=== PATIENT | female | born 1950 | race Caucasian/White ===

== ENCOUNTER 2016-10-01 10:00 | Outpatient (CLI) | payer OTHER ==
[2016-06-23 18:09] VITALS: BMI 31.8
--- NOTE | 2016-10-01 15:01 | CT ---
Examination: Helical CT examination of the abdomen pelvis with intravenous contrast. Comparison: 02/04/2016. Reason for study: Left lower quadrant pain. FINDINGS: Bibasilar atelectasis in the anterior lung bases. The heart is not enlarged. There is a moderate to large hiatal hernia not significantly changed from the prior exam. The liver, spleen, adrenal glands, gallbladder, pancreas, and kidneys are unremarkable. There is a t iny periumbilical fat-containing hernia. Surgical clips are noted in the right lower quadrant. The uterus is been removed. No pelvic free fluid or intra-abdominal free air. Mild degenerative disea se of the thoracic and lumbosacral spine. Parenchymal changes are noted within both breasts. There is a nodular density in the right breast best seen on axial image #6. Impression: 1. Moderate to large hiatal hernia not significantly changed when compared to the prior exam. 2. No acute findings in the abdomen or pelvis. 3. Nodular density in the right breast. If clinical concern exists, consultation with mammography should be performed.
== END 2016-10-01 10:01 | disposition home or self-care (01) ==
LOC: RAD 10:00
PROVIDERS: ATTEND Physician Assistant
DX: R10.32 Left lower quadrant pain (principal); K92.1 Melena

== ENCOUNTER 2016-10-13 09:35 | Outpatient (CLI) ==
[2016-06-23 18:09] VITALS: BMI 31.8
--- NOTE | 2016-10-13 10:28 | MAMMO ---
EXAM: Bilateral digital diagnostic mammogram History: Right breast nodules seen on recent CT. Comparison: Bilateral mammogram 12/19/2014, CT abdomen pelvis 10/01/2016 Findings: MLO and CC views of bilateral breasts demonstrate scattered fibroglandular breast parench yma. Stable benign intramammary lymph node within the upper-outer quadrant of the right breast. St able benign bilateral breast calcifications. There are no dominant masses and no suspicious microca lcifications. Impression: Benign stable mammogram. Recommend return to routine screening mammography schedule. BIRADS 2
== END 2016-10-13 09:36 | disposition home or self-care (01) ==
LOC: RAD 09:35
PROVIDERS: ATTEND Nurse Practitioner Family
DX: R93.8 Abnormal findings on diagnostic imaging of other specified body structures (principal); N63 Unspecified lump in breast

== ENCOUNTER 2016-10-15 23:14 | Emergency (ER) ==
[2016-10-15 23:18] VITALS: BP 174/118; TEMP 96.5; BMI 30.9
--- NOTE | 2016-10-15 23:55 | ED.PDOC ---
General ED Provider: Dr. CLARISA JOE Chief Complaint: Hypertension Stated Complaint: patient states that her blood pressure has been elevated causing her to have a headache. patient states she has been taking her blood pressure medication as perscribed. Time Seen by Physician: 23:54 Mode of Arrival: Walk-In Information Source: Patient Primary Care Provider: LYNN FARIAS Nursing and Triage Documentation Reviewed and Agree: Yes Review of Systems - Review Of Systems Constitutional: Reports: No symptoms Eyes: Reports: No symptoms Ears, Nose, Mouth, Throat: Reports: No symptoms Respiratory: Reports: No symptoms Cardiac: Reports: No symptoms GI: Reports: No symptoms : Reports: No symptoms Musculoskeletal: Reports: No symptoms Skin: Reports: No symptoms Neurological: Reports: Anxiety, Headache Endocrine: Reports: No symptoms Hematologic/Lymphatic: Reports: No symptoms All Other Systems: Reviewed and Negative Past Medical History - Past Medical History Previously Healthy: No Endocrine: Reports: None, Hypothyroid, Dyslipidemia Cardiovascular: Reports: Hypertension Respiratory: Reports: None Hematological: Reports: None Gastrointestinal: Reports: None, GERD Genitourinary: Reports: None Neuro/Psych: Reports: Anxiety, Depression Musculoskeletal: Reports: Arthritis, Back Pain Cancer: Reports: None Last Menstrual Period: n/a - Surgical History General Surgical History: Reports: Hysterectomy, Tonsillectomy - Family History Family History: Reports: None - Social History Smoking Status: Former smoker Hx Substance Use: No Alcohol Screening: Occasionally Physical Exam - Physical Exam Appearance: Ill-appearing Ill-appearing: Mild Pain Distress: Mild Eyes: ILAN, EOMI, Conjunctiva clear Neck: Supple Respiratory: Airway patent, Breath sounds clear, Breath sounds equal, Respirations nonlabored Cardiovascular: RRR GI/: Soft, Nontender, No masses, Bowel sounds normal, No Organomegaly Musculoskeletal: Normal strength Skin: Warm, Dry, Normal color Neurological: Sensation intact, Motor intact, Reflexes intact, Cranial nerves intact, Alert, Oriented Psychiatric: Anxious Interpretation - Radiology Interpretation Radiology Interpretation By: Radiologist Radiology Results: Negative Exam Interpreted: CT Scan (head) Re-Evaluation - Re-Evaluation Time of Re-Evaluation: 01:00 Status: Improved Vital Signs Stable: Yes (bp 131/61, p61) Critical Care Note - Critical Care Note Total Time (mins): 0 Course - Course Orders, Labs, Meds: Lab Review 10/16/16 00:55 Influenza A (Rapid) Negative Influenza B (Rapid) Negative Orders Category Date Time Status MOLECULAR GROUP A STREP Stat LAB 10/16/16 00:55 Results RAPID FLU A/B Stat LAB 10/16/16 00:55 Completed STREP SCREEN Stat LAB 10/16/16 00:55 Results Acetaminophen [Tylenol] MEDS 10/16/16 00:43 Discontinued 1,000 mg PO ONCE STA CT HEAD W/O CONTRAST Stat RADS 10/15/16 23:51 Completed Medications Discontinued Medications Generic Name Dose Route Start Last Admin Trade Name Brenden PRN Reason Stop Dose Admin Acetaminophen 1,000 mg 10/16/16 00:43 10/16/16 00:51 Tylenol PO 10/16/16 00:44 1,000 mg ONCE STA Administration Vital Signs: Temp Pulse Resp BP Pulse Ox 10/15/16 23:15 96.5 F L 59 L 16 174/118 H 96 Departure - Departure Time of Disposition: 01:34 Disposition: HOME SELF-CARE Discharge Problem: Hypertension Qualifiers: Hypertension type: essential hypertension Qualifier Code: (I10) Essential ( primary) hypertension Headache Qualifiers: Headache type: tension-type Headache chronicity pattern: acute headache Intractability: not intractable Qualifier Code: (G44.209) Tension-type headache , unspecified, not intractable Instructions: Migraine Headache (ED) Condition: Good Pt referred to PMD for follow-up: Yes Additional Instructions: Follow up with PCP in 3 days Take Tylenol as needed for headache. Allergies/Adverse Reactions: Allergies doxycycline calcium [From Vibramycin] Adverse Reaction (Verified 10/15/16 23:19) doxycycline hyclate [From Vibramycin] Adverse Reaction (Verified 10/15/16 23:19) doxycycline monohydrate [From Vibramycin] Adverse Reaction (Verified 10/15/16 23 :19) naproxen [From Aleve] Adverse Reaction (Verified 10/15/16 23:19) Home Medications: Ambulatory Orders Metoprolol Tartrate [Lopressor] 50 mg PO DAILY 10/17/15 Temazepam 30 mg PO BEDTIME 10/17/15 Alprazolam [Xanax] 0.25 mg PO TID 02/04/16 Hydrocodone/Acetaminophen [Hydrocodon-Acetaminophn 10-325] 10 each PO BID PRN Levothyroxine Sodium [Levo-T] 50 mg PO DAILY 06/11/16 Ranitidine HCl [Zantac] 150 mg PO BID 06/11/16 Travoprost Opth [Travatan Z] 1 drop EACHEYE BID 06/11/16 Atorvastatin Calcium 10 mg PO BEDTIME 06/23/16 Cholecalciferol (Vitamin D3) [Vitamin D3] 5,000 unit PO DAILY 06/23/16 Esomeprazole Magnesium [Nexium] 40 mg PO PRN PRN 10/15/16
--- NOTE | 2016-10-16 00:29 | CT ---
EXAM: CT brain without contrast HISTORY: Headache and hypertension TECHNIQUE: CT of the brain without intravenous contrast FINDINGS: There is no acute hemorrhage midline shift or mass effect. No hydrocephalus or abnormal extra-axial fluid collection. Generalized involutional atrophy, moderate. Chronic microvascular ch anges of the white matter tracts, mild. Prior left basil ganglia lacunar infarct. No acute large v essel territorial infarct is seen. The bony cranium appears normal. The visualized paranasal sinuse s are clear. Soft tissues without significant abnormality. IMPRESSION: 1. Chronic changes as described. No acute intracranial abnormality is seen. No interval change [facility] 06/23/2016.
[2016-10-16] MEDS ORDERED: TYLENOL PO STA (00:43)
[2016-10-16 01:17] LABS: FLU INTERNAL QC INTERNAL QC VALID
[2016-10-16 01:18] LABS: RAPID FLU A NEGATIVE (NEGATIVE); RAPID FLU B NEGATIVE (NEGATIVE)
== END 2016-10-16 01:46 | disposition home or self-care (01) ==
LOC: ED 23:14
DX: I10 Essential (primary) hypertension (principal); G44.209 Tension-type headache, unspecified, not intractable; Z79.899 Other long term (current) drug therapy
CPT/HCPCS: 87651; 87804; 87880; 99283

== ENCOUNTER 2017-06-14 13:03 | Outpatient (CLI) | payer OTHER ==
[2017-06-14 14:05] LABS: BASOPHILS % (AUTO) 0.2 % (0.0-3.0); HEMATOCRIT 37.6 % (37.0-47.0); IMMATURE GRANULOCYTE % (AUTO) 0.5 % (0.0-5.0); LYMPHOCYTES # (AUTO) 1.4 K/uL (0.60-3.4); LYMPHOCYTES % (AUTO) 8.9 (10.0-50.0); MEAN CORPUSCULAR HGB CONC 34.6 (31.8-35.4); MEAN CORPUSCULAR VOLUME 86.8 fl (81.0-99.0); MONOCYTES # (AUTO) 1.4 K/uL (0.4-2.0); MONOCYTES % (AUTO) 9.1 (0-10); NEUTROPHILS # (AUTO) 12.5 K/ul (2.0-6.9); NEUTROPHILS % (AUTO) 81.3; PLATELET COUNT 411 10^3/uL (140-440); RED BLOOD COUNT 4.33 10^6/ul (4.20-5.40); WHITE BLOOD COUNT 15.42 K/ul (4.6-10.2)
--- NOTE | 2017-06-14 14:08 | CT ---
EXAM: CT abdomen pelvis without contrast HISTORY: Generalized abdominal pain COMPARISON: 10/01/2016 TECHNIQUE: CT abdomen pelvis performed without intravenous contrast. Coronal and sagittal reformatt ed images obtained. FINDINGS: Subsegmental atelectasis and/or scarring lung bases. No free air. No acute abnormalities of the bones. Degenerative change in the spine. Heart normal in size. Evaluation organ parenchyma limited without contrast. Liver appears normal. Gallbladder unremarkable. Pancreas unremarkable. Spleen unremarkable. Adrenals unremarkable. Kidneys unremarkable. Aorta normal in caliber. Mild atherosclerosis. Bladder only mildly distended and poorly evaluated, grossly unremarkable. Patient s tatus post hysterectomy. Small fat-containing umbilical hernia. No lymphadenopathy or ascites. Pos tsurgical changes of hiatal hernia repair. No dilated loops small bowel. Appendix not visualized. Colonic diverticulosis. No lymphadenopathy or ascites. No inflammatory stranding identified in the abdomen or pelvis. IMPRESSION: 1. No acute inflammatory process identified in the abdomen or pelvis. 2. Colonic diverticulosis
[2017-06-14 15:04] LABS: ALBUMIN 3.6 g/dL (3.4-5.0); ALBUMIN/GLOBULIN RATIO 0.9; ANION GAP 14.9; BILIRUBIN,TOTAL 0.5 mg/dL (0.00-1.20); BUN/CREATININE RATIO 22.35; CREATININE 0.85 mg/dL (0.60-1.30); POTASSIUM 3.9 mmol/L (3.5-5.10); TOTAL PROTEIN 7.6 g/dL (5.8-8.1)
== END 2017-06-14 13:04 | disposition home or self-care (01) ==
LOC: RAD 13:03
PROVIDERS: ATTEND Emergency Medicine
DX: R10.84 Generalized abdominal pain (principal); E03.8 Other specified hypothyroidism
CPT/HCPCS: 36415; 80053; 85025

== ENCOUNTER 2017-09-15 16:22 | Outpatient (CLI) | END 2017-09-15 16:23 | disposition home or self-care (01) | LOC: LAB 16:22 | PROVIDERS: ATTEND Emergency Medicine | DX: E78.5 Hyperlipidemia, unspecified (principal); E03.8 Other specified hypothyroidism | CPT/HCPCS: 36415; 80053; 80061; 84443; 85025 ==

== ENCOUNTER 2017-10-04 12:15 | Outpatient (CLI) | payer OTHER ==
--- NOTE | 2017-10-04 13:38 | CT ---
EXAM: CT head without contrast. HISTORY: Initial presentation for head trauma. COMPARISON: 10/15/2016. TECHNIQUE: Multiple axial images of the brain were obtained from the skull base through the vertex w ithout intravenous contrast. Multiplanar reformats were provided. FINDINGS: There is no intracranial hemorrhage or extraaxial collection. The patino-white differentiat ion is maintained without evidence for acute large vascular territory infarction. There are areas of periventricular and subcortical white matter low attenuation. The cortical sulci and cerebral ventr icles are symmetrically enlarged. The basal cisterns are well visualized. There is no hydrocephalus , mass effect, or midline shift. The paranasal sinuses and mastoid air cells are clear. The calvari um is intact. Since the prior study, there has been no significant interval change. IMPRESSION: 1. No acute intracranial abnormality. 2. Chronic small vessel ischemic changes and atrophy.
--- NOTE | 2017-10-04 13:42 | CT ---
EXAM: CT of the cervical spine without contrast History: Head and neck trauma. Technique: Multiplanar CT images through the cervical spine were obtained without the administration of IV contrast Findings: The visualized upper lungs are free of consolidation. The visualized airway remains paten t. Reversal of the normal cervical lordosis. No acute fracture or subluxation of the cervical spine. N o prevertebral soft tissue swelling. Predental space is not widened. Moderate to severe disc space narrowing at C5-6 and C6-7 with osteophyte formation. There is anterior subluxation of the bilateral temporal mandibular joints. C2-3: No significant bony central canal stenosis or bony neural foraminal narrowing. C3-4: No significant bony central canal stenosis. Moderate to severe right-sided bony neural forami nal narrowing secondary to uncovertebral and facet hypertrophy. No left-sided bony neural foraminal narrowing. C4-5: No significant bony central canal stenosis. Moderate to severe right-sided bony neural forami nal narrowing secondary to uncovertebral and facet hypertrophy. No significant left-sided bony neura l foraminal narrowing. C5-6: Posterior disc osteophyte complex with mild central canal stenosis. Severe right and moderate to severe left bony neural foraminal narrowing secondary to uncovertebral and facet hypertrophy. C6-7: Small posterior disc osteophyte complex with mild central canal stenosis. Severe right and mo derate to severe left bony neural foraminal narrowing secondary to uncovertebral and facet hypertroph y. Impression: 1. No acute osseous abnormality of the lumbar spine. 2. Moderate to severe degenerative disc disease at C5-6 and C6-7. 3. Degenerative changes with one also as detailed above.
== END 2017-10-04 12:16 | disposition home or self-care (01) ==
LOC: RAD 12:15
PROVIDERS: ATTEND Emergency Medicine
DX: S09.90XA Unspecified injury of head, initial encounter (principal); S19.9XXA Unspecified injury of neck, initial encounter

== ENCOUNTER 2017-11-08 11:27 | Outpatient (CLI) ==
--- NOTE | 2017-11-09 09:43 | MAMMO ---
EXAM: Bilateral digital screening mammogram (2-D and 3-D) History: Screening Comparison: Bilateral mammogram 10/13/2016 Findings: MLO and CC views of bilateral breasts demonstrate scattered fibroglandular breast parenchy ma. CAD was reviewed by the radiologist. Tomosynthesis was performed. Stable benign intramammary l ymph node within the upper-outer quadrant of the right breast. Stable benign bilateral breast calcif ications. There are no dominant masses, no suspicious microcalcifications and no architectural disto rtions Impression: Benign stable mammogram. Recommend followup routine screening mammography in 1 year. BIRADS 2
== END 2017-11-08 11:28 | disposition home or self-care (01) ==
LOC: RAD 11:27
PROVIDERS: ATTEND Emergency Medicine
DX: Z12.31 Encounter for screening mammogram for malignant neoplasm of breast (principal)
CPT/HCPCS: 77067

== ENCOUNTER 2018-01-11 10:00 | Outpatient (RCR) | END 2018-01-12 23:59 | LOC: NEWBEG 10:00 | PROVIDERS: ATTEND Psychiatry & Neurology Psychiatry | DX: F33.3 Major depressive disorder, recurrent, severe with psychotic symptoms (principal); F41.9 Anxiety disorder, unspecified; E78.5 Hyperlipidemia, unspecified; E03.8 Other specified hypothyroidism | CPT/HCPCS: 36415; 80053; 80061; 85025; 90792; 90853 ==

== ENCOUNTER 2018-01-11 14:52 | Outpatient (CLI) | END 2018-01-11 14:53 | disposition home or self-care (01) | LOC: RHC-LAB 14:52 | PROVIDERS: ATTEND Emergency Medicine | DX: E78.5 Hyperlipidemia, unspecified (principal); E03.8 Other specified hypothyroidism | CPT/HCPCS: 36415; 80053; 80061; 85025 ==

== ENCOUNTER 2018-01-30 10:00 | Outpatient (RCR) ==
[2017-11-08 11:32] VITALS: BMI 30.9
== END 2018-02-11 23:59 ==
LOC: NEWBEG 10:00
PROVIDERS: ATTEND Psychiatry & Neurology Psychiatry
DX: F33.3 Major depressive disorder, recurrent, severe with psychotic symptoms (principal); F41.9 Anxiety disorder, unspecified
CPT/HCPCS: 90853; 99213

== ENCOUNTER 2018-03-13 10:00 | Outpatient (RCR) ==
[2017-11-08 11:32] VITALS: BMI 30.9
== END 2018-03-14 23:59 ==
LOC: NEWBEG 10:00
PROVIDERS: ATTEND Psychiatry & Neurology Psychiatry
DX: F33.3 Major depressive disorder, recurrent, severe with psychotic symptoms (principal); F41.9 Anxiety disorder, unspecified
CPT/HCPCS: 90853; 99213

== ENCOUNTER 2018-03-31 10:00 | Outpatient (RCR) ==
[2017-11-08 11:32] VITALS: BMI 30.9
== END 2018-04-14 23:59 ==
LOC: NEWBEG 10:00
PROVIDERS: ATTEND Psychiatry & Neurology Psychiatry
DX: F33.3 Major depressive disorder, recurrent, severe with psychotic symptoms (principal); F41.9 Anxiety disorder, unspecified
CPT/HCPCS: 90853; 99213

== ENCOUNTER 2018-04-19 14:41 | Outpatient (CLI) | payer OTHER ==
[2017-11-08 11:32] VITALS: BMI 30.9
== END 2018-04-19 14:42 | disposition home or self-care (01) ==
LOC: RHC-LAB 14:41
PROVIDERS: ATTEND Emergency Medicine
DX: E78.5 Hyperlipidemia, unspecified (principal); F33.1 Major depressive disorder, recurrent, moderate; F41.1 Generalized anxiety disorder
CPT/HCPCS: 36415; 80061; 85025

== ENCOUNTER 2018-05-03 11:39 | Outpatient (CLI) ==
[2017-11-08 11:32] VITALS: BMI 30.9
== END 2018-05-03 11:40 | disposition home or self-care (01) ==
LOC: FCC-LAB 11:39
PROVIDERS: ATTEND Nurse Practitioner Family
DX: E03.8 Other specified hypothyroidism (principal); E78.5 Hyperlipidemia, unspecified; I10 Essential (primary) hypertension
CPT/HCPCS: 36415; 80053; 84443

== ENCOUNTER 2018-05-12 10:00 | Outpatient (RCR) | payer OTHER ==
[2017-11-08 11:32] VITALS: BMI 30.9
== END 2018-05-14 23:59 ==
LOC: NEWBEG 10:00
PROVIDERS: ATTEND Psychiatry & Neurology Psychiatry
DX: F33.3 Major depressive disorder, recurrent, severe with psychotic symptoms (principal); F41.9 Anxiety disorder, unspecified
CPT/HCPCS: 90832; 90853; 99213

== ENCOUNTER 2018-06-14 10:00 | Outpatient (RCR) ==
[2017-11-08 11:32] VITALS: BMI 30.9
== END 2018-06-14 23:59 ==
LOC: NEWBEG 10:00
PROVIDERS: ATTEND Psychiatry & Neurology Psychiatry
DX: F33.3 Major depressive disorder, recurrent, severe with psychotic symptoms (principal); F60.9 Personality disorder, unspecified; F41.9 Anxiety disorder, unspecified
CPT/HCPCS: 90853; 99213

== ENCOUNTER 2018-08-11 10:00 | Outpatient (RCR) ==
[2017-11-08 11:32] VITALS: BMI 30.9
== END 2018-08-14 23:59 ==
LOC: NEWBEG 10:00
PROVIDERS: ATTEND Psychiatry & Neurology Psychiatry
DX: F25.1 Schizoaffective disorder, depressive type (principal); F33.3 Major depressive disorder, recurrent, severe with psychotic symptoms; F41.9 Anxiety disorder, unspecified; F60.9 Personality disorder, unspecified
CPT/HCPCS: 90832; 90834; 90837; 90853; 99213; 99214

== ENCOUNTER 2018-09-13 10:00 | Outpatient (RCR) ==
[2017-11-08 11:32] VITALS: BMI 30.9
== END 2018-09-14 23:59 ==
LOC: NEWBEG 10:00
PROVIDERS: ATTEND Psychiatry & Neurology Psychiatry
DX: F41.9 Anxiety disorder, unspecified (principal); F33.3 Major depressive disorder, recurrent, severe with psychotic symptoms; F60.9 Personality disorder, unspecified; F25.1 Schizoaffective disorder, depressive type
CPT/HCPCS: 90853; 99213; 99214

== ENCOUNTER 2018-10-11 10:00 | Outpatient (RCR) ==
[2017-11-08 11:32] VITALS: BMI 30.9
== END 2018-10-12 23:59 ==
LOC: NEWBEG 10:00
PROVIDERS: ATTEND Psychiatry & Neurology Psychiatry
DX: F41.9 Anxiety disorder, unspecified (principal); F33.3 Major depressive disorder, recurrent, severe with psychotic symptoms; F60.9 Personality disorder, unspecified; F25.1 Schizoaffective disorder, depressive type
CPT/HCPCS: 90853; 99213; 99214

== ENCOUNTER 2018-10-23 15:43 | Emergency (ER) ==
[2018-10-23 15:47] VITALS: BP 138/94; TEMP 97.6; BMI 31.2
--- NOTE | 2018-10-23 16:41 | US ---
EXAM: Bilateral lower extremity venous Doppler History: Bilateral lower extremity pain. Technique: Multiple sonographic images through the bilateral lower extremities were obtained. Color duplex Doppler was used to interrogate vascular flow. Findings: The bilateral common femoral, greater saphenous, profunda, superficial femoral, popliteal, peroneal, posterior tibial and anterior tibial veins demonstrate spontaneous flow with normal compre ssion and normal augmentation. Impression: No sonographic evidence for deep venous thrombosis.
--- NOTE | 2018-10-23 17:07 | ED.PDOC ---
General ED Provider: Dr. POLINA BISWAS Chief Complaint: Rash Stated Complaint: BILATERAL LOWER LEG EDMA , RASH Time Seen by Physician: 16:00 Mode of Arrival: Walk-In Information Source: Patient Exam Limitations: No limitations Primary Care Provider: IAN NEGRETE Nursing and Triage Documentation Reviewed and Agree: Yes Does patient meet sepsis criteria?: Yes If yes, has appropriate treatment been initiated?: No System Inflammatory Response Syndrome: Not Applicable Sepsis Protocol: For patient's 13 years and over: Temp is 96.8 and below OR 101 and greater Pulse >90 BPM Resp >20/minute Acutely Altered Mental Status Are patient's symptoms suggestive of a new infection, such as: -Pneumonia -Skin, Soft Tissue -Endocarditis -UTI -Bone, Joint Infection -Implantable Device -Acute Abdominal Infection -Wound Infection -Meningitis -Blood Stream Catheter Infection -Unknown Skin Complaint Exam - Skin Rash/Itching Complaint/Exam Onset/Duration: 1 WEEK Symptoms Are: Still present Initial Severity: Mild Current Severity: Mild Location: SEE PHOTOS Aggravating: Reports: None Alleviating: Reports: None Associated Signs and Symptoms: Denies: Difficulty breathing, Fever, Chills Skin Findings: Present: Papules, Vesicles Differential Diagnoses: Allergic Reaction, Contact Dermatitis Review of Systems - Review Of Systems Constitutional: Reports: No symptoms Eyes: Reports: No symptoms Ears, Nose, Mouth, Throat: Reports: No symptoms Respiratory: Reports: No symptoms Cardiac: Reports: No symptoms GI: Reports: No symptoms : Reports: No symptoms Musculoskeletal: Reports: Other (EDEMA LOWER LEGS ) Skin: Reports: Rash (SEE PHOTOS) Neurological: Reports: No symptoms Endocrine: Reports: No symptoms Hematologic/Lymphatic: Reports: No symptoms All Other Systems: Reviewed and Negative Past Medical History - Past Medical History Previously Healthy: No Endocrine: Reports: None, Hypothyroid, Dyslipidemia Cardiovascular: Reports: Hypertension Respiratory: Reports: None Hematological: Reports: None Gastrointestinal: Reports: None, GERD Genitourinary: Reports: None Neuro/Psych: Reports: Anxiety, Depression Musculoskeletal: Reports: Arthritis, Back Pain Cancer: Reports: None Last Menstrual Period: n/a - Surgical History General Surgical History: Reports: Hysterectomy, Tonsillectomy - Family History Family History: Reports: None - Social History Smoking Status: Former smoker Hx Substance Use: No Alcohol Screening: Occasionally Physical Exam - Physical Exam Appearance: Well-appearing, No pain distress, Well-nourished Eyes: ILAN, EOMI, Conjunctiva clear ENT: Ears normal, Nose normal, Oropharynx normal Respiratory: Airway patent, Breath sounds clear, Breath sounds equal, Respirations nonlabored Cardiovascular: RRR, Pulses normal, No rub, No murmur GI/: Soft, Nontender, No masses, Bowel sounds normal, No Organomegaly Musculoskeletal: Normal strength, ROM intact, No calf tenderness, Edema (EDEMA ) Skin: Warm, Dry (RASH SEE PHOTOS) Neurological: Sensation intact, Motor intact, Reflexes intact, Cranial nerves intact, Alert, Oriented Psychiatric: Affect appropriate, Mood appropriate Critical Care Note - Critical Care Note Total Time (mins): 0 Course - Course Hematology/Chemistry: 10/23/18 15:50 10/23/18 15:50 Orders, Labs, Meds: Lab Review 10/23/18 10/23/18 15:50 15:50 WBC 8.23 RBC 4.01 L Hgb 12.2 Hct 36.4 L MCV 90.8 MCH 30.4 MCHC 33.5 RDW Coeff of Danilo 12.3 Plt Count 315 Immature Gran % (Auto) 0.4 Neut % (Auto) 65.3 Lymph % (Auto) 21.7 Mclennan % (Auto) 8.5 Eos % (Auto) 3.4 Baso % (Auto) 0.7 Immature Gran # (Auto) 0.0 Neut # (Auto) 5.4 Lymph # (Auto) 1.8 Mclennan # (Auto) 0.7 Eos # (Auto) 0.3 Baso # (Auto) 0.1 Sodium 137.1 Potassium 4.20 Chloride 102.5 Carbon Dioxide 26.2 Anion Gap 12.60 BUN 12.9 Creatinine 0.73 Estimated GFR (MDRD) 79.00 BUN/Creatinine Ratio 17.67 Glucose 99.0 Calcium 9.51 Total Bilirubin 0.46 AST 29.1 ALT 26.8 Alkaline Phosphatase 91.3 Total Protein 7.47 Albumin 4.33 Globulin 3.14 Albumin/Globulin Ratio 1.37 Orders Category Date Time Status CBC W/ AUTO DIFF Stat LAB 10/23/18 15:50 Ordered COMPREHENSIVE METABOLIC PANEL Stat LAB 10/23/18 15:50 Ordered U/S VENOUS SCAN PALLAVI LEGS Stat RADS 10/23/18 15:51 Ordered Vital Signs: Temp Pulse Resp BP Pulse Ox 10/23/18 15:44 97.6 F 74 20 138/94 H 94 L Departure - Departure Time of Disposition: 17:10 Disposition: HOME SELF-CARE Discharge Problem: Pruritic rash, Pruritic rash Instructions: Acute Rash (ED) Condition: Good Pt referred to PMD for follow-up: Yes IPMP verified?: No Additional Instructions: Please call your Family Physician as soon as possible to schedule a follow-up appointment. Allergies/Adverse Reactions: Allergies doxycycline calcium [From Vibramycin] Adverse Reaction (Verified 10/23/18 15:47) doxycycline hyclate [From Vibramycin] Adverse Reaction (Verified 10/23/18 15:47) doxycycline monohydrate [From Vibramycin] Adverse Reaction (Verified 10/23/18 15 :47) naproxen [From Aleve] Adverse Reaction (Verified 10/23/18 15:47) Home Medications: Ambulatory Orders Travoprost Opth [Travatan Z] 1 drop EACHEYE BID 06/11/16 Cholecalciferol (Vitamin D3) [Vitamin D3] 5,000 unit PO DAILY 06/23/16 Ascorbic Acid [Vitamin C] 100 mg PO BID 05/10/18 Haloperidol 1 tab-cap PO BEDTIME 07/18/18 Mirtazapine [Remeron] 0.5 tab-cap PO BEDTIME 07/18/18
== END 2018-10-23 17:15 | disposition home or self-care (01) ==
LOC: ED 15:43
DX: R21 Rash and other nonspecific skin eruption (principal); L29.9 Pruritus, unspecified; R60.0 Localized edema; E03.9 Hypothyroidism, unspecified; E78.5 Hyperlipidemia, unspecified; I10 Essential (primary) hypertension; F33.3 Major depressive disorder, recurrent, severe with psychotic symptoms; F41.9 Anxiety disorder, unspecified; F60.9 Personality disorder, unspecified; F25.1 Schizoaffective disorder, depressive type
CPT/HCPCS: 36415; 80053; 85025; 90853; 99283

== ENCOUNTER 2018-11-07 09:01 | Outpatient (CLI) ==
--- NOTE | 2018-11-08 11:20 | MAMMO ---
EXAM: Digital screening mammogram with tomosynthesis HISTORY: Screening COMPARISON: 11/08/2017 FINDINGS: Digital MLO and CC views of the right and left breast were performed. Tomosynthesis was performed. Computer aided detection utilized. There are scattered fibroglandular densities. Benign bilateral calcifications. Right breast asymmetry in the central breast anterior depth. There is no evidence for mass, asymmetry, distortion, or suspicious calcifications in the left breast. IMPRESSION: 1. Right breast asymmetry. Diagnostic mammogram and possible ultrasound recommended for further lawson luation. 2. Annual screening mammogram is recommended in one year. BIRADS category 0, needs additional evaluation.
== END 2018-11-07 09:02 | disposition home or self-care (01) ==
LOC: RAD 09:01
PROVIDERS: ATTEND Family Medicine
DX: Z12.31 Encounter for screening mammogram for malignant neoplasm of breast (principal)

== ENCOUNTER 2018-11-10 12:10 | Outpatient (RCR) ==
[2017-11-08 11:32] VITALS: BMI 30.9
== END 2018-11-12 23:59 ==
LOC: NEWBEG 12:10
PROVIDERS: ATTEND Psychiatry & Neurology Psychiatry
DX: F33.3 Major depressive disorder, recurrent, severe with psychotic symptoms (principal); F41.9 Anxiety disorder, unspecified; F60.9 Personality disorder, unspecified; F25.1 Schizoaffective disorder, depressive type
CPT/HCPCS: 90853; 99213; 99214

== ENCOUNTER 2018-11-13 09:35 | Outpatient (CLI) ==
--- NOTE | 2018-11-13 11:34 | MAMMO ---
EXAM: Digital diagnostic right breast mammogram with tomosynthesis and right breast ultrasound HISTORY: Right breast asymmetry COMPARISON: Mammogram same day FINDINGS: Mammogram: Spot compression CC and MLO views right breast were performed. Tomosynthesis was performed. There a re scattered fibroglandular densities. There is a persistent asymmetry in the right central/lateral breast anterior depth. Ultrasound: Ultrasound right breast was performed in the region of mammographic finding. At the 9 o'clock positi on, 3 cm from the nipple, there is an apparant hypoechoic mass measuring 1.0 x 0.6 x 0.6 cm with inte rnal vascularity. Finding is suspicious. Two additional adjacent regions were measured by the technologist at 1.4 x 0.6 x 1.0 cm and 0.9 x 0.5 x 0.7 cm. I evaluated these regions on the time examination and these appear to represent normal fib roglandular tissue. These findings are probably benign. IMPRESSION: 1. Right breast mass. This finding is suspicious. Recommend tissue sampling. 2. Additional regions in the right breast that most likely represent fibroglandular tissue. These f indings are probably benign. Recommend follow-up mammogram and ultrasound in 6 months. BIRADS category 4, suspicious.
== END 2018-11-13 09:36 | disposition home or self-care (01) ==
LOC: RAD 09:35
PROVIDERS: ATTEND Family Medicine
DX: R92.8 Other abnormal and inconclusive findings on diagnostic imaging of breast (principal); N64.89 Other specified disorders of breast; F33.3 Major depressive disorder, recurrent, severe with psychotic symptoms; F41.9 Anxiety disorder, unspecified; F60.9 Personality disorder, unspecified; F25.1 Schizoaffective disorder, depressive type
CPT/HCPCS: 90853

== ENCOUNTER 2018-11-20 17:19 | Outpatient (CLI) ==
--- NOTE | 2018-11-21 08:27 | DI ---
EXAM: Two views of the chest. History: Cough. Comparison: Chest radiograph 06/23/2016 Findings: Heart size is normal. Atherosclerotic vascular calcifications. Basilar subsegmental atel ectasis. No consolidated pneumonia. No pleural fluid and no pneumothorax. No acute osseous abnorma lities. Impression: No acute cardiopulmonary process
== END 2018-11-20 17:20 | disposition home or self-care (01) ==
LOC: LAB 17:19
PROVIDERS: ATTEND Family Medicine
DX: R05 Cough (principal); R68.89 Other general symptoms and signs
CPT/HCPCS: 87651

== ENCOUNTER 2018-12-01 12:15 | Outpatient (RCR) | END 2018-12-12 23:59 | LOC: NEWBEG 12:15 | PROVIDERS: ATTEND Psychiatry & Neurology Psychiatry | DX: F33.3 Major depressive disorder, recurrent, severe with psychotic symptoms (principal); F41.9 Anxiety disorder, unspecified; F60.9 Personality disorder, unspecified; F25.1 Schizoaffective disorder, depressive type | CPT/HCPCS: 90853; 99213 ==